=== PATIENT | female | born 1950 | race Caucasian/White ===

== ENCOUNTER 2019-02-27 10:01 | Day surgery (SDC) | payer OTHER ==
[~2019-02-27] VITALS: Ht 149.9 cm; Wt 68.0 kg
[~2019-02-27 10:01] MED LIST: LEVO175T31 OR; PRO20T GT
[2019-02-27] MEDS ORDERED: SODIUM CHLORIDE LOCK 10 ML ONE (10:25)
[2019-02-27] MEDS ORDERED: diphenhdrAMINE HCL 50 MG/1 ML VL ONE (10:28)
[2019-02-27] MEDS: fentaNYL CITRATE 100 MCG/2 ML VL ONE ×2 (10:55→11:01)
[2019-02-27] MEDS: MIDAZOLAM HCL 5 MG/ML-1ML VIAL ONE ×2 (10:55→11:01)
== END 2019-02-27 12:00 | disposition home or self-care (01) ==
LOC: SUR 10:01
PROVIDERS: ATTEND Internal Medicine Gastroenterology
DX: Z12.11 Encounter for screening for malignant neoplasm of colon (principal); K64.8 Other hemorrhoids; E03.9 Hypothyroidism, unspecified; M19.90 Unspecified osteoarthritis, unspecified site; E66.9 Obesity, unspecified; Z68.30 Body mass index [BMI] 30.0-30.9, adult; Z88.2 Allergy status to sulfonamides; Z79.890 Hormone replacement therapy; Z79.899 Other long term (current) drug therapy; Z98.51 Tubal ligation status; Z98.891 History of uterine scar from previous surgery; Z98.890 Other specified postprocedural states
CPT/HCPCS: 45378; J1200; J2250; J3010; J7030; 99152

== ENCOUNTER → 2019-03-26 | Outpatient (CLI) | payer OTHER ==
[2019-03-26 11:57] LABS: Urine Bacteria NONE SEEN /hpf (None Seen); Urine Blood 1+ /uL (Negative); Urine Specific Gravity 1.006 (1.001-1.035); Urine WBC 8 /hpf (0 - 5)
== END | disposition home or self-care (01) ==
LOC: LAB 11:32
PROVIDERS: ATTEND Internal Medicine
DX: R10.9 Unspecified abdominal pain (principal)
CPT/HCPCS: 81001

== ENCOUNTER → 2019-06-18 | Outpatient (CLI) | payer OTHER | END | disposition home or self-care (01) | LOC: LAB 11:54 | PROVIDERS: ATTEND Nurse Practitioner Family | DX: N39.0 Urinary tract infection, site not specified (principal) | CPT/HCPCS: 87086; 87088; 87186 ==

== ENCOUNTER → 2019-08-21 | Outpatient (CLI) | payer OTHER ==
[2019-08-21 08:34] LABS: Basophils # (auto) 0.1 uL; Basophils % (auto) 0.8 % (0.0-2.0); Eosinophils # (auto) 0.2 uL; Eosinophils % (auto) 3.3 % (0.0-7.0); Hematocrit 44.8 % (36.0-46.0); Hemoglobin 15.1 g/dL (12.2-16.2); Lymphocytes # (auto) 2.9 uL; Lymphocytes % (auto) 39.3 % (10.0-50.0); Mean Corpuscular Hemoglobin 30.5 pg (28.0-32.0); Mean Corpuscular Hgb Conc. 33.8 g/dL (32.0-36.0); Mean Corpuscular Volume 90.3 fL (80.0-100.0); Monocytes # (auto) 0.4 uL; Monocytes % (auto) 5.7 % (0.0-12.0); Neutrophils # (auto) 3.7 uL; Neutrophils % (auto) 50.9 % (37.0-80.0); Nucleated Red Blood Cells % 0.1 %; Platelet Count (auto) 351 10^3/uL (140-450); Red Blood Cells 4.96 10^6/uL (4.0-5.20); Red Cell Distribution Width 12.9 % (11.8-14.3); White Blood Cell 7.3 10^3/uL (4.4-10.8)
[2019-08-21 08:46] LABS: Urine Bacteria NONE SEEN /hpf (None Seen); Urine Blood Negative /uL (Negative); Urine Specific Gravity 1.009 (1.001-1.035); Urine WBC 8 /hpf (0 - 5)
[2019-08-21 09:07] LABS: Albumin 4.2 g/dL (3.4-5.0); BUN/Creatinine Ratio 19.4; Bilirubin, Total 0.6 mg/dL (0.2-1.0); Calcium 9.4 mg/dL (8.5-10.1); Potassium 4.5 mmol/L (3.5-5.1); Total Protein 8.2 g/dL (6.4-8.2)
== END | disposition home or self-care (01) ==
LOC: LAB 08:07
PROVIDERS: ATTEND Internal Medicine
DX: E03.9 Hypothyroidism, unspecified (principal); I10 Essential (primary) hypertension; G25.0 Essential tremor
CPT/HCPCS: 36415; 80053; 80061; 81001; 82043; 84439; 84443; 85025; 85652

== ENCOUNTER → 2019-10-06 | Outpatient (CLI) | payer OTHER ==
[2019-10-06 10:21] LABS: Basophils # (auto) 0 uL; Basophils % (auto) 0.8 % (0.0-2.0); Eosinophils # (auto) 0.2 uL; Eosinophils % (auto) 3.2 % (0.0-7.0); Hematocrit 41.9 % (36.0-46.0); Lymphocytes # (auto) 2.8 uL; Lymphocytes % (auto) 47.8 % (10.0-50.0); Mean Corpuscular Hemoglobin 30.3 pg (28.0-32.0); Mean Corpuscular Hgb Conc. 33.5 g/dL (32.0-36.0); Mean Corpuscular Volume 90.5 fL (80.0-100.0); Monocytes # (auto) 0.4 uL; Neutrophils # (auto) 2.5 uL; Neutrophils % (auto) 42.2 % (37.0-80.0); Nucleated Red Blood Cells % 0.1 %; Platelet Count (auto) 324 10^3/uL (140-450); Red Blood Cells 4.63 10^6/uL (4.0-5.20); Red Cell Distribution Width 13.2 % (11.8-14.3); White Blood Cell 5.9 10^3/uL (4.4-10.8)
[2019-10-06 10:46] LABS: Urine Bacteria NONE SEEN /hpf (None Seen); Urine Blood Negative /uL (Negative); Urine WBC 4 /hpf (0 - 5)
[2019-10-06 11:27] LABS: Albumin 3.7 g/dL (3.4-5.0); Calcium 8.9 mg/dL (8.5-10.1); Potassium 4.3 mmol/L (3.5-5.1)
[2019-10-06 11:32] LABS: BUN/Creatinine Ratio 18.8; Bilirubin, Total 0.4 mg/dL (0.2-1.0); Total Protein 6.9 g/dL (6.4-8.2)
== END | disposition home or self-care (01) ==
LOC: LAB 09:51
PROVIDERS: ATTEND Internal Medicine
DX: Z01.818 Encounter for other preprocedural examination (principal); R60.9 Edema, unspecified; Z86.718 Personal history of other venous thrombosis and embolism
CPT/HCPCS: 36415; 80053; 81001; 84439; 84443; 85025

== ENCOUNTER → 2020-01-19 | Outpatient (CLI) | payer OTHER ==
[2020-01-19 08:27] LABS: Basophils # (auto) 0.1 10 ^3/uL (0-0.2); Basophils % (auto) 0.8 % (0.0-2.0); Eosinophils # (auto) 0.2 10 ^3/uL (0-0.8); Eosinophils % (auto) 3.6 % (0.0-7.0); Hematocrit 41.9 % (36.0-46.0); Hemoglobin 14.3 g/dL (12.2-16.2); Lymphocytes # (auto) 2.8 10 ^3/uL (0.4-5.4); Lymphocytes % (auto) 42.8 % (10.0-50.0); Mean Corpuscular Hemoglobin 30.4 pg (28.0-32.0); Mean Corpuscular Hgb Conc. 34.1 g/dL (32.0-36.0); Mean Corpuscular Volume 89.2 fL (80.0-100.0); Monocytes # (auto) 0.4 10 ^3/uL (0-1.3); Neutrophils # (auto) 3.1 10 ^3/uL (1.6-8.6); Neutrophils % (auto) 46.8 % (37.0-80.0); Nucleated Red Blood Cells % 0.1 %; Platelet Count (auto) 307 10^3/uL (140-450); Red Cell Distribution Width 13.1 % (11.8-14.3); White Blood Cell 6.6 10^3/uL (4.4-10.8)
[2020-01-19 08:44] LABS: Cholesterol 220 mg/dL (< 200)
[2020-01-19 08:46] LABS: HDL Cholesterol 61 mg/dL (40-59); LDL Cholesterol 144 mg/dL (< 100); Triglycerides 136 mg/dL (< 150)
== END | disposition home or self-care (01) ==
LOC: LAB 08:04
PROVIDERS: ATTEND Internal Medicine
DX: I10 Essential (primary) hypertension (principal); M25.50 Pain in unspecified joint
CPT/HCPCS: 36415; 80061; 85025; 85652; 86200; 86431; 86812

== ENCOUNTER → 2020-09-06 | Outpatient (CLI) | payer OTHER ==
[2020-09-06 08:13] LABS: Basophils # (auto) 0.1 10 ^3/uL (0-0.2); Basophils % (auto) 0.8 % (0.0-2.0); Eosinophils # (auto) 0.3 10 ^3/uL (0-0.8); Hematocrit 40.9 % (36.0-46.0); Hemoglobin 13.8 g/dL (12.2-16.2); Lymphocytes # (auto) 2.7 10 ^3/uL (0.4-5.4); Lymphocytes % (auto) 42.7 % (10.0-50.0); Mean Corpuscular Hemoglobin 30.6 pg (28.0-32.0); Mean Corpuscular Hgb Conc. 33.7 g/dL (32.0-36.0); Mean Corpuscular Volume 90.8 fL (80.0-100.0); Monocytes # (auto) 0.4 10 ^3/uL (0-1.3); Monocytes % (auto) 5.9 % (0.0-12.0); Neutrophils % (auto) 46.6 % (37.0-80.0); Nucleated Red Blood Cells % 0.1 %; Platelet Count (auto) 366 10^3/uL (140-450); Red Cell Distribution Width 12.9 % (11.8-14.3); White Blood Cell 6.4 10^3/uL (4.4-10.8)
[2020-09-06 08:35] LABS: Albumin 3.8 g/dL (3.4-5.0); Calcium 9.1 mg/dL (8.5-10.1); Potassium 4.5 mmol/L (3.5-5.1)
[2020-09-06 08:41] LABS: BUN/Creatinine Ratio 16.7; Bilirubin, Total 0.4 mg/dL (0.2-1.0); Total Protein 7.2 g/dL (6.4-8.2)
== END | disposition home or self-care (01) ==
LOC: LAB 07:42
PROVIDERS: ATTEND Internal Medicine
DX: I10 Essential (primary) hypertension (principal); N31.9 Neuromuscular dysfunction of bladder, unspecified
CPT/HCPCS: 36415; 80053; 80061; 84439; 84443; 85025; 85652

== ENCOUNTER → 2021-05-10 | Outpatient (CLI) | payer OTHER ==
[~2021-05-10] MED LIST changes: -LEVO175T31 OR; +LEVO175T66 OR
[2021-05-10 11:02] LABS: Cholesterol 217 mg/dL (< 200); HDL Cholesterol 57 mg/dL (40-59); LDL Cholesterol 139 mg/dL (< 100); Triglycerides 147 mg/dL (< 150)
== END | disposition home or self-care (01) ==
LOC: LAB 08:16
PROVIDERS: ATTEND Internal Medicine
DX: I10 Essential (primary) hypertension (principal); E03.9 Hypothyroidism, unspecified
CPT/HCPCS: 36415; 80061; 83036; 84439; 84443

== ENCOUNTER → 2022-06-27 | Outpatient (CLI) | payer OTHER | END | disposition home or self-care (01) | LOC: LAB 06:49 | PROVIDERS: ATTEND Nurse Practitioner | DX: N39.0 Urinary tract infection, site not specified (principal) | CPT/HCPCS: 87086; 87088; 87186 ==

== ENCOUNTER → 2022-07-30 | Outpatient (CLI) | payer OTHER ==
[2022-07-30 10:09] LABS: Basophils # (auto) 0 10 ^3/uL (0-0.2); Basophils % (auto) 0.6 % (0.0-2.0); Eosinophils # (auto) 0.2 10 ^3/uL (0-0.8); Hematocrit 39.4 % (36.0-46.0); Hemoglobin 13.1 g/dL (12.2-16.2); Lymphocytes # (auto) 3.3 10 ^3/uL (0.4-5.4); Lymphocytes % (auto) 47.8 % (10.0-50.0); Mean Corpuscular Hemoglobin 29.1 pg (28.0-32.0); Mean Corpuscular Hgb Conc. 33.2 g/dL (32.0-36.0); Mean Corpuscular Volume 87.6 fL (80.0-100.0); Monocytes # (auto) 0.4 10 ^3/uL (0-1.3); Neutrophils # (auto) 2.9 10 ^3/uL (1.6-8.6); Neutrophils % (auto) 42.6 % (37.0-80.0); Red Cell Distribution Width 13.3 % (11.8-14.3); White Blood Cell 6.9 10^3/uL (4.4-10.8)
[2022-07-30 10:14] LABS: Urine Bacteria NONE SEEN /hpf (None Seen); Urine Blood Negative /uL (Negative); Urine Specific Gravity 1.006 (1.001-1.035); Urine WBC 12 /hpf (0 - 5); Urine WBC Clumps PRESENT /hpf (None Seen)
[2022-07-30 10:45] LABS: Albumin 3.6 g/dL (3.4-5.0); Calcium 9.1 mg/dL (8.5-10.1); Potassium 4.2 mmol/L (3.5-5.1)
[2022-07-30 10:51] LABS: BUN/Creatinine Ratio 14.8; Bilirubin, Total 0.4 mg/dL (0.2-1.0); Total Protein 6.8 g/dL (6.4-8.2)
== END | disposition home or self-care (01) ==
LOC: LAB 09:36
PROVIDERS: ATTEND Internal Medicine
DX: I10 Essential (primary) hypertension (principal); E03.9 Hypothyroidism, unspecified
CPT/HCPCS: 36415; 80053; 80061; 81001; 84439; 84443; 85025; 85652

== ENCOUNTER → 2023-03-15 | Outpatient (CLI) | payer OTHER ==
[~2023-03-15] MED LIST changes: +LEVO175T4 OR; -LEVO175T66 OR
== END | disposition home or self-care (01) ==
LOC: LAB 09:40
PROVIDERS: ATTEND Family Medicine
DX: L72.9 Follicular cyst of the skin and subcutaneous tissue, unspecified (principal)
CPT/HCPCS: 88302

== ENCOUNTER → 2023-03-20 | Outpatient (CLI) | payer OTHER ==
[~2023-03-20] MED LIST changes: -LEVO175T4 OR; +LEVO175T66 OR
[2023-03-20 14:13] LABS: Basophils # (auto) 0.1 10 ^3/uL (0-0.2); Basophils % (auto) 0.8 % (0.0-2.0); Eosinophils # (auto) 0.3 10 ^3/uL (0-0.8); Eosinophils % (auto) 3.4 % (0.0-7.0); Hematocrit 38.2 % (36.0-46.0); Lymphocytes # (auto) 4.2 10 ^3/uL (0.4-5.4); Lymphocytes % (auto) 50.3 % (10.0-50.0); Mean Corpuscular Hemoglobin 30.6 pg (28.0-32.0); Mean Corpuscular Hgb Conc. 34.2 g/dL (32.0-36.0); Mean Corpuscular Volume 89.6 fL (80.0-100.0); Monocytes # (auto) 0.5 10 ^3/uL (0-1.3); Neutrophils # (auto) 3.3 10 ^3/uL (1.6-8.6); Neutrophils % (auto) 39.5 % (37.0-80.0); Nucleated Red Blood Cells % 0.1 %; Red Blood Cells 4.26 10^6/uL (4.0-5.20); Red Cell Distribution Width 13.6 % (11.8-14.3); White Blood Cell 8.3 10^3/uL (4.4-10.8)
[2023-03-20 14:35] LABS: Potassium 4.6 mmol/L (3.5-5.1)
[2023-03-20 15:41] LABS: Albumin 3.7 g/dL (3.4-5.0); BUN/Creatinine Ratio 19.7 (10.0-20.0); Bilirubin, Total 0.2 mg/dL (0.2-1.0); Calcium 8.5 mg/dL (8.5-10.1); Total Protein 6.9 g/dL (6.4-8.2)
== END | disposition home or self-care (01) ==
LOC: LAB 13:50
PROVIDERS: ATTEND Internal Medicine
DX: I10 Essential (primary) hypertension (principal); E03.9 Hypothyroidism, unspecified
CPT/HCPCS: 36415; 80053; 83036; 84439; 84443; 85025

== ENCOUNTER → 2023-08-07 | Outpatient (CLI) | payer OTHER ==
[~2023-08-07] MED LIST changes: +LEVO175T4 OR; -LEVO175T66 OR
[2023-08-07 08:21] LABS: Basophils # (auto) 0.1 10 ^3/uL (0-0.2); Eosinophils # (auto) 0.2 10 ^3/uL (0-0.8); Eosinophils % (auto) 3.5 % (0.0-7.0); Hematocrit 39.8 % (36.0-46.0); Hemoglobin 13.5 g/dL (12.2-16.2); Lymphocytes # (auto) 2.9 10 ^3/uL (0.4-5.4); Lymphocytes % (auto) 45.1 % (10.0-50.0); Mean Corpuscular Hgb Conc. 33.9 g/dL (32.0-36.0); Mean Corpuscular Volume 88.5 fL (80.0-100.0); Monocytes # (auto) 0.4 10 ^3/uL (0-1.3); Monocytes % (auto) 6.6 % (0.0-12.0); Neutrophils # (auto) 2.9 10 ^3/uL (1.6-8.6); Neutrophils % (auto) 43.8 % (37.0-80.0); Nucleated Red Blood Cells % 0.1 %; Red Blood Cells 4.49 10^6/uL (4.0-5.20); White Blood Cell 6.5 10^3/uL (4.4-10.8)
[2023-08-07 08:41] LABS: Urine Bacteria FEW /hpf (None Seen); Urine Blood Negative /uL (Negative); Urine Clarity Clear (Clear); Urine Color Colorless (Yellow); Urine Protein, UAD Negative (Negative); Urine Specific Gravity 1.006 (1.001-1.035); Urine Urobilinogen Normal (Negative); Urine WBC 45 /hpf (0 - 5)
[2023-08-07 08:58] LABS: Alanine Aminotransferase 24 U/L (7-40); Albumin 4.4 g/dL (3.2-4.8); Alkaline Phosphatase 64 U/L (46-116); Anion Gap 5 (5-15); Aspartate Aminotransferase 25 U/L (13-40); BUN/Creatinine Ratio 11.1 (10.0-20.0); Bilirubin, Total 0.6 mg/dL (0.2-1.0); Blood Urea Nitrogen 8 mg/dL (9-23); Calcium 9.4 mg/dL (8.5-10.1); Carbon Dioxide 28 mmol/L (20-30); Chloride 105 mmol/L (98-107); Cholesterol 195 mg/dL (< 200); Glucose 106 mg/dL (74-106); HDL Cholesterol 59 mg/dL (40-59); LDL Cholesterol 120 mg/dL (< 100); Potassium 4.8 mmol/L (3.5-5.1); Sodium 138 mmol/L (136-145); Triglycerides 113 mg/dL (< 150)
[2023-08-07 09:25] LABS: Erythrocyte Sedimentation Rate 8 mm/hr (0-20)
== END | disposition home or self-care (01) ==
LOC: LAB 08:06
PROVIDERS: ATTEND Internal Medicine
DX: E03.9 Hypothyroidism, unspecified (principal)
CPT/HCPCS: 36415; 80053; 80061; 81001; 84439; 84443; 85025; 85652

== ENCOUNTER → 2023-09-09 | Outpatient (CLI) | payer OTHER ==
[2023-09-09 15:27] LABS: Alanine Aminotransferase 17 U/L (7-40); Albumin 4.3 g/dL (3.2-4.8); Alkaline Phosphatase 64 U/L (46-116); Anion Gap 6 (5-15); Aspartate Aminotransferase 21 U/L (13-40); BUN/Creatinine Ratio 13.7 (10.0-20.0); Bilirubin, Total 0.2 mg/dL (0.2-1.0); Blood Urea Nitrogen 10 mg/dL (9-23); Calcium 9.5 mg/dL (8.5-10.1); Carbon Dioxide 27 mmol/L (20-30); Chloride 107 mmol/L (98-107); Glucose 103 mg/dL (74-106); Potassium 4.1 mmol/L (3.5-5.1); Sodium 140 mmol/L (136-145); Total Protein 6.6 g/dL (5.7-8.2)
== END | disposition home or self-care (01) ==
LOC: LAB 14:22
PROVIDERS: ATTEND Internal Medicine
DX: R73.01 Impaired fasting glucose (principal)
CPT/HCPCS: 36415; 80053; 83036; 86803

== ENCOUNTER → 2024-08-27 | Outpatient (CLI) | payer OTHER ==
[2024-08-27 09:11] LABS: Urine Bacteria None Seen /hpf (None Seen)
[2024-08-27 09:21] LABS: Basophils # (auto) 0.1 10 ^3/uL (0-0.2); Basophils % (auto) 0.8 % (0.0-2.0); Eosinophils # (auto) 0.3 10 ^3/uL (0-0.8); Eosinophils % (auto) 3.2 % (0.0-7.0); Hematocrit 40.6 % (36.0-46.0); Hemoglobin 13.6 g/dL (12.2-16.2); Lymphocytes % (auto) 27.4 % (10.0-50.0); Mean Corpuscular Hemoglobin 29.8 pg (28.0-32.0); Mean Corpuscular Hgb Conc. 33.5 g/dL (32.0-36.0); Mean Corpuscular Volume 88.9 fL (80.0-100.0); Monocytes # (auto) 0.6 10 ^3/uL (0-1.3); Monocytes % (auto) 5.5 % (0.0-12.0); Neutrophils # (auto) 6.8 10 ^3/uL (1.6-8.6); Neutrophils % (auto) 63.1 % (37.0-80.0); Platelet Count (auto) 351 10^3/uL (140-450); Red Blood Cells 4.57 10^6/uL (4.0-5.20); Red Cell Distribution Width 13.5 % (11.8-14.3); White Blood Cell 10.8 10^3/uL (4.4-10.8)
[2024-08-27 10:01] LABS: Alanine Aminotransferase 17 U/L (7-40); Albumin 4.3 g/dL (3.2-4.8); Alkaline Phosphatase 75 U/L (46-116); Anion Gap 7 (5-15); Aspartate Aminotransferase 23 U/L (13-40); Bilirubin, Total 0.4 mg/dL (0.2-1.0); Blood Urea Nitrogen 9 mg/dL (9-23); Calcium 9.8 mg/dL (8.7-10.4); Carbon Dioxide 27 mmol/L (20-31); Chloride 107 mmol/L (98-107); Cholesterol 182 mg/dL (< 200); Glucose 110 mg/dL (74-106); HDL Cholesterol 57 mg/dL (40-59); LDL Cholesterol 119 mg/dL (< 100); Potassium 4.5 mmol/L (3.5-5.1); Sodium 141 mmol/L (136-145); Total Protein 7.3 g/dL (5.7-8.2); Triglycerides 104 mg/dL (< 150)
[2024-08-27 10:05] LABS: Erythrocyte Sedimentation Rate 11 mm/hr (0-20); Urine Blood Negative /uL (Negative); Urine Clarity Clear (Clear); Urine Color Light-Yellow (Yellow); Urine Protein, UAD Negative (Negative); Urine Specific Gravity 1.014 (1.001-1.035); Urine Urobilinogen Normal (Negative); Urine WBC 2 /hpf (0 - 5); Urine pH 5.5 (5.0-9.0)
== END | disposition home or self-care (01) ==
LOC: LAB 08:53
PROVIDERS: ATTEND Internal Medicine
DX: I10 Essential (primary) hypertension (principal); E03.9 Hypothyroidism, unspecified
CPT/HCPCS: 36415; 80053; 80061; 81001; 84439; 84443; 85025; 85652

== ENCOUNTER → 2025-02-26 | Outpatient (CLI) | payer OTHER ==
[2025-02-26 11:54] LABS: Basophils # (auto) 0 10 ^3/uL (0-0.2); Basophils % (auto) 0.4 % (0.0-2.0); Eosinophils # (auto) 0.3 10 ^3/uL (0-0.8); Eosinophils % (auto) 3.1 % (0.0-7.0); Hematocrit 40.7 % (36.0-46.0); Hemoglobin 13.9 g/dL (12.2-16.2); Lymphocytes # (auto) 4.3 10 ^3/uL (0.4-5.4); Lymphocytes % (auto) 39.9 % (10.0-50.0); Mean Corpuscular Hemoglobin 30.4 pg (28.0-32.0); Mean Corpuscular Hgb Conc. 34.2 g/dL (32.0-36.0); Mean Corpuscular Volume 88.8 fL (80.0-100.0); Monocytes # (auto) 0.8 10 ^3/uL (0-1.3); Monocytes % (auto) 7.1 % (0.0-12.0); Neutrophils # (auto) 5.3 10 ^3/uL (1.6-8.6); Neutrophils % (auto) 49.5 % (37.0-80.0); Nucleated Red Blood Cells % 0.1 %; Platelet Count (auto) 354 10^3/uL (140-450); Red Blood Cells 4.58 10^6/uL (4.0-5.20); Red Cell Distribution Width 13.1 % (11.8-14.3); White Blood Cell 10.8 10^3/uL (4.4-10.8)
[2025-02-26 12:24] LABS: Free T4 (Free Thyroxine) 1.46 ng/dL (0.89-1.76)
[2025-02-26 12:27] LABS: Alanine Aminotransferase 28 U/L (7-40); Albumin 4.4 g/dL (3.2-4.8); Alkaline Phosphatase 77 U/L (46-116); Anion Gap 8 (5-15); Aspartate Aminotransferase 21 U/L (13-40); BUN/Creatinine Ratio 18.7 (10.0-20.0); Blood Urea Nitrogen 14 mg/dL (9-23); Calcium 10.3 mg/dL (8.7-10.4); Carbon Dioxide 28 mmol/L (20-31); Chloride 105 mmol/L (98-107); Glucose 100 mg/dL (74-106); Potassium 4.7 mmol/L (3.5-5.1); Sodium 141 mmol/L (136-145); Total Protein 7.2 g/dL (5.7-8.2)
[2025-02-26 12:30] LABS: Bilirubin, Total 0.2 mg/dL (0.2-1.0)
== END | disposition home or self-care (01) ==
LOC: LAB 11:05
PROVIDERS: ATTEND Internal Medicine
DX: I10 Essential (primary) hypertension (principal); E78.00 Pure hypercholesterolemia, unspecified; G25.0 Essential tremor
CPT/HCPCS: 36415; 80053; 82607; 84439; 84443; 85025

== ENCOUNTER 2025-04-11 16:43 | Inpatient (IN) | payer OTHER ==
[~2025-04-11] VITALS: Ht 149.9 cm; Wt 64.1 kg
--- NOTE | 2025-04-11 17:01 | ED.PDOC ---
General HPI Comments 74 y.o female with PMHx of reoccurring UTI's, thyroid disease, and HTN, presents to the ED for a chief complaint of dysuria associated with nausea and cloudy urine output that started one day ago. Patient reports reoccurring UTI's, last one diagnosed was about 1.5 months ago, was placed on antibiotics in which she finished but developed symptoms once again yesterday. Patient reports using straight catheter twice a day at home due to his UTI's. Patient denies any fever, chills, back pain, abdominal pain, hematuria, or vomiting. Patient takes nitrofurantoin nightly. Chief Complaint: Urinary Time Seen by MD: 16:52 Reviewed notes: Nurses Notes, Medications, Allergies Allergies: Coded Allergies: Sulfa Antibiotics (Verified Allergy, Severe, HIVES, 02/24/19) Home Meds Active Scripts Levofloxacin Hemihydrate (LEVOFLOXACIN) 500 Mg Tab, 1 TAB PO DAILY, #7 TAB Prov:PEDRO PABLO PHILLIPS MD 04/11/25 Reported Medications Propranolol Hcl (Inderal) 20 Mg Tb, 20 MG GT BID 04/02/12 Levothyroxine Sodium (Levothyroxine Sodium) 175 Mcg Tab, 175 MCG OR QAM 04/02/12 Information Source: Patient Mode of Arrival: Ambulatory Severity: Moderate Timing: Days (1) Duration: Since onset Onset: Spontaneous Symptoms: Dysuria History of: UTI Location: None Modifying factors: None associated signs and symptoms: Nausea, Dysuria Past Medical History PAST MEDICAL HISTORY: HTN, Thyroid, UTI'S Surgical History: Appendectomy, , Tubal Ligation Surgical History (Other): cataracts BIOMEDICAL ENGINEER History: No Pertinent BIOMEDICAL ENGINEER History Family History Family History: Family hx of heart fredi Family History (Other): Father had COPD Social History Smoker: Non-Smoker Alcohol: Denies ETOH Use Drugs: Denies Drug Use Lives In: Home Constitutional: denies: chills, diaphoresis, fatigue, fever, malaise, sweats, weakness, others EENTM: denies: blurred vision, double vision, ear bleeding, ear discharge, ear drainage, ear pain, ear ringing, eye pain, eye redness, hearing loss, mouth pain, mouth swelling, nasal discharge, nose bleeding, nose congestion, nose pain, photophobia, tearing, throat pain, throat swelling, voice changes, others Respiratory: denies: cough, hemoptysis, orthopnea, SOB at rest, shortness of breath, SOB with excertion, stridor, wheezing, others Cardiovascular: denies: chest pain, dizzy spells, diaphoresis, Dyspnea on exertion, edema, irregular heart beat, left arm pain, lightheadedness, palpitations, PND, syncope, others Gastrointestinal: reports: nausea; denies: abdomen distended, abdominal pain, blood streaked bowels, constipated, diarrhea, dysphagia, difficulty swallowing, hematemesis, melena, poor appetite, poor fluid intake, rectal bleeding, rectal pain, vomiting, others Genitourinary: reports: burning, dysuria; denies: abnormal vagina bleeding, dyspareunia, flank pain, frequency, hematuria, incontinence, pain, , vagina discharge, urgency, others Neurological: denies: dizziness, fainting, headache, left sided numbness, left sided weakness, numbness, paresthesia, pre-existing deficit, right sided numbness, right sided weakness, seizure, speech problems, tingling, tremors, weakness, others Musculoskeletal: denies: back pain, gout, joint pain, joint swelling, muscle pain, muscle stiffness, neck pain, others Integumetry: denies: bruises, change in color, change in hair/nails, dryness, laceration, lesions, lumps, rash, wounds, others Allergic/Immunocompromised: denies: Difficulty Healing, Frequent Infections, Hives, Itching, others Hematologic/Lymphatic: denies: anemia, blood clots, easy bleeding, easy bruising, swollen glands, others Endocrine: denies: excessive hunger, excessive sweating, excessive thirst, excessive urination, flushing, intolerance to cold, intolerance to heat, unexplained weight gain, unexplained weight loss, others Psychiatric: denies: anxiety, bipolar disorder, depression, hopeless, panic disorder, schizophrenia, sleepless, suicidal, others All Other Systems: Reviewed and Negative Physical Exam General Appearance: No Apparent Distress HEENT: Normal ENT Inspection, Pharynx Normal, TMs Normal Neck: Full Range of Motion, Non-Tender, Normal, Normal Inspection Respiratory: Chest Non-Tender, Lungs Clear, No Accessory Muscle Use, No Respiratory Distress, Normal Breath Sounds Cardiovascular: No Edema, No JVD, No Murmur, No Gallop, Normal Peripheral Pulses, Regular Rate/Rhythm Breast Exam: Deferred Gastrointestinal: No Organomegaly, Non Tender, No Pulsatile Mass, Normal Bowel Sounds, Soft Genitalia: Deferred Pelvic: Deferred Rectal: Deferred Extremities: No calf tenderness, Normal capillary refill, Normal inspection, Normal range of motion, Non-tender, No pedal edema Musculoskeletal : Apperance: Normal Neurologic: Alert, lime slaker II-XII nml as Tested, No Motor Deficits, Normal Affect, Normal Mood, No Sensory Deficits Cerebellar Function: Normal Reflexes: Normal Skin: Dry, Normal Color, Warm Lymphatic: No Adenopathy Was a procedure done? Was a procedure done?: No Differential Diagnosis Kidney stone (Female): N/A Urinary Problem (Female): PID, Urolithiasis, UTI X-Ray, Labs, Meds, VS Vital Signs Date Time Temp Pulse Resp B/P (MAP) Pulse Ox O2 Delivery O2 Flow Rate FiO2 04/11/25 16:54 98.4 90 17 156/93 (114) 97 98.4 Lab Test 04/11/25 17:03 Range/Units Urine Color Colorless Yellow Urine Clarity Turbid H Clear Urine pH 6.0 5.0-9.0 Urine Specific [place] 1.004 1.001-1.035 Urine Protein Negative Negative Urine Ketones Negative Negative Urine Blood 1+ H Negative /uL Urine Nitrite Negative Negative Urine Bilirubin Negative Negative Urine Urobilinogen Normal Negative mg/dL Urine Leukocyte Esterase 3+ Negative /uL Urine RBC 4 0 - 4 /hpf Urine WBC Clumps Present None Seen /hpf Urine Microscopic WBC 956 H 0-5 /HPF Urine Squamous Epithelial Cells Few <5 /hpf Urine Bacteria Few H None Seen /hpf Urine Glucose Normal Normal mg/dL The urine test is positive for UTI The patient is being discharged and will follow up with the primary care doctor The patient will return the emergency department's the condition worsens. The patient understands and agrees with the management Patient is afebrile. The patient is not hypertensive The patient is being placed on Levaquin Time of 1ST Reevaluation: 18:00 Reevaluation 1ST: Unchanged Patient Education/Counseling: Diagnosis, Treatment, Prognosis, Need For Follow Up Family Education/Counseling: No Family Present Departure 1 Departure Time of Disposition: 17:40 Impression: Primary Impression: UTI (urinary tract infection) Qualified Codes: N30.00 - Acute cystitis without hematuria Disposition: HOME / SELF CARE / HOMELESS Condition: Fair e-Prescriptions Levofloxacin Hemihydrate (LEVOFLOXACIN) 500 Mg Tab 1 TAB PO DAILY, #7 TAB Prov: PEDRO PABLO PHILLIPS MD 04/11/25 Discharged With: Self Critical Care Note Critical Care Time?: No Stability Stability form required: No I personally scribed for PEDRO PABLO PHILLIPS MD ([email or web address]) on 04/11/25 at 17:01. Electronically submitted by Ofe Priest ([facility]). PEDRO PABLO PHILLIPS MD Apr 11, 2025 17:01
[2025-04-11 17:28] LABS: Urine Bacteria FEW /hpf (None Seen); Urine Blood 1+ /uL (Negative); Urine Clarity Turbid (Clear); Urine Color Colorless (Yellow); Urine Protein, UAD Negative (Negative); Urine Specific Gravity 1.004 (1.001-1.035); Urine Squamous Epithelial Cell FEW /hpf (<5); Urine Urobilinogen Normal (Negative); Urine WBC 956 /HPF (0-5); Urine WBC Clumps PRESENT /hpf (None Seen)
[2025-04-11] MEDS ORDERED: LEVO500T91 PO (17:39)
[2025-04-11] MEDS: SODIUM CHLORIDE 0.9% 1,000 ML IV ONE (19:05)
[2025-04-11 19:35] LABS: Basophils # (auto) 0 10 ^3/uL (0-0.2); Basophils % (auto) 0.4 % (0.0-2.0); Eosinophils # (auto) 0.4 10 ^3/uL (0-0.8); Eosinophils % (auto) 4.3 % (0.0-7.0); Hemoglobin 13.8 g/dL (12.2-16.2); Lymphocytes # (auto) 3.7 10 ^3/uL (0.4-5.4); Lymphocytes % (auto) 39.7 % (10.0-50.0); Mean Corpuscular Hgb Conc. 33.8 g/dL (32.0-36.0); Mean Corpuscular Volume 88.7 fL (80.0-100.0); Monocytes # (auto) 0.6 10 ^3/uL (0-1.3); Monocytes % (auto) 6.3 % (0.0-12.0); Neutrophils # (auto) 4.6 10 ^3/uL (1.6-8.6); Neutrophils % (auto) 49.3 % (37.0-80.0); Nucleated Red Blood Cells % 0.1 %; Platelet Count (auto) 310 10^3/uL (140-450); Red Blood Cells 4.62 10^6/uL (4.0-5.20); Red Cell Distribution Width 13.2 % (11.8-14.3); White Blood Cell 9.2 10^3/uL (4.4-10.8)
[2025-04-11 19:40] LABS: Chloride 105 mmol/L (98-107); Potassium 3.8 mmol/L (3.5-5.1); Sodium 138 mmol/L (136-145)
[2025-04-11 19:41] LABS: Anion Gap 9 (5-15); Calcium 9.9 mg/dL (8.7-10.4); Carbon Dioxide 24 mmol/L (20-31)
[2025-04-11 19:46] LABS: BUN/Creatinine Ratio 10.5 (10.0-20.0)
[2025-04-11 19:50] LABS: Blood Urea Nitrogen 8 mg/dL (9-23); Glucose 110 mg/dL (74-106)
[2025-04-11] MEDS ORDERED: hydrALAZINE HCL 20 MG/ML VL IV PRN (20:00)
[2025-04-11] MEDS ORDERED: ONDANSETRON HCL 4 MG/2 ML VIAL IV PRN (20:00)
[2025-04-11] MEDS ORDERED: ACETAMINOPHEN 325 MG TAB PO PRN (20:00)
[2025-04-11] MEDS: cefTRIAXone 1GM/50ML D5W 50 ML IV ONE ×2 (20:35→20:36)
[2025-04-11] MEDS: hydrALAZINE HCL 20 MG/ML VL IV PRN (21:13)
[2025-04-11] MEDS ORDERED: PROPRANOLOL HCL 20 MG TAB PO SCH (22:00)
--- NOTE | 2025-04-11 22:13 | DVHHP2 ---
History of Present Illness Reason for Visit: Urine infection History of Present Illness 74-year-old female presents for evaluation of urinary tract infection. The patient reports recently completing a 3rd antibiotic for a urinary tract infection. She states taking three antibiotics over the past six weeks. She reports developing dysuria with associated nausea and cloudy urine over the past day. No fever or chills. Past Medical History Thyroid, hypertension, UTIs Past Surgical History , tubal ligation, appendectomy Family History Heart disease Smoke: No ALCOHOL: none Drugs: None Review of Systems Review of Systems Review of systems are currently negative otherwise addressed in HPI. Allergies: Coded Allergies: Sulfa Antibiotics (Verified Allergy, Severe, HIVES, 02/24/19) Medications Current Medications Medications Dose Ordered Sig/Cristela Route Start Time Stop Time Status Last Admin Dose Admin Propranolol HCl 20 mg BID PO 04/11/25 22:00 Levothyroxine Sodium 100 mcg QAM@0600 PO 04/12/25 06:00 Ceftriaxone Sodium 50 ml @ 100 mls/hr DAILY@09 IV 04/12/25 09:00 Ondansetron HCl 4 mg Q4HP PRN IV 04/11/25 20:00 Acetaminophen 650 mg Q6HP PRN PO 04/11/25 20:00 Hydralazine HCl 10 mg Q6HP PRN IV 04/11/25 21:00 04/11/25 21:13 10 MG Exam Vital Signs Vital Signs Date Time Temp Pulse Resp B/P (MAP) Pulse Ox O2 Delivery O2 Flow Rate FiO2 04/11/25 21:58 82 12 163/69 (100) 96 04/11/25 20:41 Room Air* 0 21 04/11/25 20:41 98.0 98.0 Exam Gen: 74-year-old female in mild distress Skin: Warm, dry, normal color and texture, no rash. HEENT: Normocephalic atraumatic, mucous membranes moist and pink. Neck: Cervical and supraclavicular nodes normal without enlargement, trachea is midline, thyroid gland is normal without masses. Pulmonary: Clear to auscultation and percussion bilaterally. Cardiac: Regular rate and rhythm. No murmur Abdomen: Soft, nontender, nondistended, bowel sounds present all 4 quadrants, no guarding, no rigidity, no organomegaly. Extremities: No cyanosis, clubbing, no edema Neuro: Cranial nerves II through XII grossly intact, normal affect and speech, no focal motor deficits. Labs/Xrays Labs Test 04/11/25 19:15 04/11/25 17:03 Range/Units White Blood Count 9.2 4.4-10.8 10^3/uL Red Blood Count 4.62 4.0-5.20 10^6/uL Hemoglobin 13.8 12.2-16.2 g/dL Hematocrit 41.0 36.0-46.0 % Mean Corpuscular Volume 88.7 80.0-100.0 fL Mean Corpuscular Hemoglobin 30.0 28.0-32.0 pg Mean Corpuscular Hemoglobin Concent 33.8 32.0-36.0 g/dL Red Cell Distribution Width 13.2 11.8-14.3 % Platelet Count 310 140-450 10^3/uL Mean Platelet Volume 6.7 L 6.9-10.8 fL Neutrophils (%) (Auto) 49.3 37.0-80.0 % Lymphocytes (%) (Auto) 39.7 10.0-50.0 % Monocytes (%) (Auto) 6.3 0.0-12.0 % Eosinophils (%) (Auto) 4.3 0.0-7.0 % Basophils (%) (Auto) 0.4 0.0-2.0 % Neutrophils # (Auto) 4.6 1.6-8.6 10 ^3/uL Lymphocytes # (Auto) 3.7 0.4-5.4 10 ^3/uL Monocytes # (Auto) 0.6 0-1.3 10 ^3/uL Eosinophils # (Auto) 0.4 0-0.8 10 ^3/uL Basophils # (Auto) 0 0-0.2 10 ^3/uL Nucleated Red Blood Cells 0.1 % Sodium Level 138 136-145 mmol/L Potassium Level 3.8 3.5-5.1 mmol/L Chloride Level 105 98-107 mmol/L Carbon Dioxide Level 24 20-31 mmol/L Anion Gap 9 5-15 Blood Urea Nitrogen 8 L 9-23 mg/dL Creatinine 0.76 0.550-1.02 mg/dL Glomerular Filtration Rate Calc 83 >90 mL/min BUN/Creatinine Ratio 10.5 10.0-20.0 Serum Glucose 110 H 74-106 mg/dL Lactic Acid Level 1.0 0.4-2.0 mmol/L Calcium Level 9.9 8.7-10.4 mg/dL Urine Color Colorless Yellow Urine Clarity Turbid H Clear Urine pH 6.0 5.0-9.0 Urine Specific [place] 1.004 1.001-1.035 Urine Protein Negative Negative Urine Ketones Negative Negative Urine Blood 1+ H Negative /uL Urine Nitrite Negative Negative Urine Bilirubin Negative Negative Urine Urobilinogen Normal Negative mg/dL Urine Leukocyte Esterase 3+ Negative /uL Urine RBC 4 0 - 4 /hpf Urine WBC Clumps Present None Seen /hpf Urine Microscopic WBC 956 H 0-5 /HPF Urine Squamous Epithelial Cells Few <5 /hpf Urine Bacteria Few H None Seen /hpf Urine Glucose Normal Normal mg/dL Assessment/Plan Assessment/Plan Assessment Complicated UTI Hypertension Thyroid Plan [facility] Urine bacterial culture pending Ertapenem Resume home medications Continue treatment per orders Plan discussed with: Patient My Orders Orders - FREDDY ALFARO Procedure Category Date Status Time Urine Bacterial STACI 04/11/25 In Process Culture 19:49 Propranolol Hcl PHA 04/11/25 In Process Tablet (Inderal 22:00 Levothyroxine Tablet PHA 04/12/25 In Process (Synthroid Tablet) 06:00 Ceftriaxone 1gm/50ml PHA 04/12/25 In Process D5w (Rocephin) 09:00 Admit ADMIT 04/11/25 Transmitted 19:49 Ondansetron Hcl PHA 04/11/25 In Process (Zofran) 20:00 Condition: Stable KODY 04/11/25 In Process 19:49 Acetaminophen Tablet PHA 04/11/25 In Process (Tylenol Tablet) 20:00 Bedrest With Bathroom KODY 04/11/25 In Process Privileg 19:49 Hydralazine Injection PHA 04/11/25 In Process (Apresoline Inject 21:00 Date of Service: Apr 11, 2025 Billing Provider: FREDDY ALFARO Common Visit Codes: [id number] INP/OBS CARE (MOD) FREDDY ALFARO Apr 11, 2025 22:13
[2025-04-11 22:17] VITALS: BP 162/79; PULSE 102; RESP 19; TEMP 98.2; O2SAT 98
[2025-04-11 22:51] VITALS: PULSE 102; RESP 19; O2SAT 98
[2025-04-11] MEDS: PROPRANOLOL HCL 20 MG TAB PO SCH (23:13)
[2025-04-11] MEDS ORDERED: PROP1TAB53 PO (23:49)
[2025-04-11] MEDS ORDERED: IBUP1TAB5 PO (23:49)
[2025-04-11] MEDS ORDERED: LOSA-534 PO (23:49)
[2025-04-11] MEDS ORDERED: LEVO-177 PO (23:49)
[2025-04-11] MEDS ORDERED: TRAM50TA2 PO (23:49)
[2025-04-12] VITALS (7 sets, daily range): BP systolic 138–156; BP diastolic 51–83; PULSE 76–88; RESP 14–20; TEMP 97.7–98.2; O2SAT 96–99
[2025-04-12] MEDS: LEVOTHYROXINE SODIUM 100 MCG TAB PO SCH (05:56)
[2025-04-12] MEDS ORDERED: LEVOTHYROXINE SODIUM 100 MCG TAB PO SCH (06:00)
[2025-04-12] MEDS ORDERED: cefTRIAXone 1GM/50ML D5W 50 ML IV SCH (09:00)
--- NOTE | 2025-04-12 09:09 | DVH ---
INDICATION: chronic uti's TECHNIQUE: Multiple real-time sonographic images of the kidneys and bladder were obtained. COMPARISON: None FINDINGS: The right kidney measures 9 cm in length, which is normal in size. There is normal echogeni city of the right kidney. No hydronephrosis. The left kidney measures 9.9 cm in length, which is normal in size. There is normal echogenicity of t he left kidney. MILD LEFT HYDRONEPHROSIS No large intraluminal masses are seen in the bladder. Prior to voiding the bladder volume measures vo lume 545 cc. IMPRESSION: Mild left hydronephrosis.
[2025-04-12] MEDS: ERTAPENEM SOD INJ 1 GM in SODIUM CHL 0.9% 50 ML IV SCH (10:00)
[2025-04-12] MEDS ORDERED: PATIENTS OWN MEDICATION (ertapenem 1 GM) IV SCH (10:00)
[2025-04-12 10:52] LABS: INR 1.03 (0.9-1.15); Prothrombin Time 10.9 sec (9.3-11.8)
[2025-04-12 10:57] LABS: Alkaline Phosphatase 72 U/L (46-116); Magnesium 1.9 mg/dL (1.6-2.6); Total Protein 6.9 g/dL (5.7-8.2)
[2025-04-12 10:58] LABS: Albumin 4.2 g/dL (3.2-4.8)
[2025-04-12 10:59] LABS: Bilirubin, Total 0.4 mg/dL (0.2-1.0)
[2025-04-12 11:09] LABS: Aspartate Aminotransferase 36 U/L (<34); Bilirubin, Direct < 0.1 mg/dL (<0.3)
--- NOTE | 2025-04-12 11:51 | DVHPNRES ---
Progress Note Date Seen: Apr 12, 2025 Resident Creating Document: DEENA BURTON RESIDENT Medical Necessity Reason Pt with a Central, PICC or Fol: No Subjective Review of Systems This is a 74-year-old female with hypothyroidism on levothyroxine, hypertension on losartan, recurrent UTIs who was sent to the ER by her PCP for the evaluation of dysuria. Patient reports experiencing UTI 3 times in the past 6 weeks, she has taking Ceftin her followed by Augmentin for 5 days followed by Augmentin for 10 days. Her symptoms resolved for 4-5 days after completing the course of antibiotics and and then would experienced similar symptoms. She denies any fever chills but reports nausea, denies vomiting, constipation or diarrhea. Urine culture report from 03/04/2025 shows E coli probable ESBL resistant to nitrofurantoin, sensitive to Augmentin, cefoxitin, ertapenem, meropenem, tobramycin. PCP: Dr. Gunderson On the ER patient was hypotensive but otherwise on room air. UA showed WBC clumps, 3+ leukocyte esterase. Patient was started on IV ertapenem and IV fluids. Prelim urine culture growing Gram-negative rods. Objective vital signs Vital Sign Date Time Temp Pulse Resp B/P (MAP) Pulse Ox O2 Delivery O2 Flow Rate FiO2 04/12/25 10:20 78 152/51 04/12/25 09:17 98.1 14 99 98.1 04/11/25 22:51 Room Air* 0 21 Total Intake and Output 04/11/25 04/11/25 04/12/25 15:00 23:00 07:00 Intake Total 1000 ml 123 ml Balance 1000 ml 123 ml medications Current Medications Medications Dose Ordered Sig/Cristela Route Start Time Stop Time Status Last Admin Dose Admin Ondansetron HCl 4 mg Q4HP PRN IV 04/11/25 20:00 Acetaminophen 650 mg Q6HP PRN PO 04/11/25 20:00 Hydralazine HCl 10 mg Q6HP PRN IV 04/11/25 21:00 04/11/25 21:13 10 MG Propranolol HCl 20 mg BID PO 04/11/25 22:00 04/12/25 10:20 20 MG Levothyroxine Sodium 100 mcg QAM@0600 PO 04/12/25 06:00 04/12/25 05:56 100 MCG Ertapenem 1 gm/ Sodium Chloride 50 ml @ 100 mls/hr DAILY IV 04/12/25 10:00 Examination Elderly female patient, well conversational, no acute distress General: Well-built, afebrile, mucosae are moist Cardiovascular: Regular S1 and S2. No murmurs, gallops or rubs. No JVD elevation. No pedal edema Respiratory: Normal B/L air entry on room air. Clear lung sounds on auscultation Abdomen: Soft, suprapubic tenderness, nondistended, normoactive bowel sounds, no rebound tenderness, no organomegaly, no masses. No CVA tenderness Genitourinary: Deferred MSK/skin: Mobilizes 4 limbs. Skin is dry and warm Neurological: No motor, no sensitive deficits, normal speech. Pupils are isocoric and reactive. Psych/Mental Status: A/Ox3 laboratory and microbiology Laboratory Tests 04/11/25 19:15 Test 04/11/25 19:15 Range/Units Serum Glucose 110 H 74-106 mg/dL Microbiology Date/Time Source Procedure Growth Status 04/11/25 17:03 Voided Urine Urine Culture - Preliminary Resulted Labs and/or images reviewed: Labs reviewed by me, Image(s) reviewed by me Problem List/Assessment/Plan Problem List/Assessment/Plan Acute cystitis ? ESBL E coli Recurrent UTIs Mild left hydronephrosis UA shows 1+ blood, 3+ leukocyte esterase, 956 WBC and few bacteria Urine bacterial culture growing Gram-negative rods Continue Invanz starting 04/12 Phenazopyridine 200 mg TID for 2 days Uncontrolled hypertension Losartan 50 mg daily Hypothyroidism Levothyroxine 100 mcg daily and propranolol 20 mg b.i.d.b12 DVT prophylaxis: Lovenox 40 mg sc daily Plan discussed with patient in which all questions have been answered Goals of care discussed for more than 20 minutes, full code status Case discussed with Dr. Thompson Plan discussed with: Patient My Orders My Orders Orders - DEENA BURTON Procedure Category Date Status Time Bladder Scan ED NURSING 04/12/25 Transmitted 07:37 Hepatic Panel LAB 04/12/25 In Process 07:37 Magnesium LAB 04/12/25 In Process 07:37 Drug Screen LAB 04/12/25 Transmitted 07:37 Kidney US 04/12/25 Resulted 07:37 DEENA BURTON Apr 12, 2025 11:51
[2025-04-12 13:05] LABS: Alanine Aminotransferase 24 U/L (7-40)
[2025-04-12 14:08] LABS: T3 Total 1.06 ng/mL (0.60-1.81)
[2025-04-12 14:09] LABS: Free T4 (Free Thyroxine) 1.53 ng/dL (0.89-1.76)
[2025-04-12] MEDS: PHENAZOPYRIDINE HCL 100 MG TAB PO SCH (14:11)
[2025-04-12] MEDS: LOSARTAN POTASSIUM 50 MG TAB PO ONE (14:15)
[2025-04-12] MEDS: ERGOCALCIFEROL 50,000 UNIT(1.25MG) CAP PO SCH (14:15)
[2025-04-12] MEDS: CYANOCOBALAMIN (B-12) 1000 MCG/1 ML VIAL IM ONE (14:22)
[2025-04-13 01:00] VITALS: BP 138/64; PULSE 69; RESP 18; TEMP 98.1; O2SAT 98
[2025-04-13 05:00] VITALS: BP 158/68; PULSE 77; RESP 16; TEMP 98.9; O2SAT 97
[2025-04-13 07:38] LABS: Potassium 3.6 mmol/L (3.5-5.1); Sodium 142 mmol/L (136-145)
[2025-04-13 07:39] LABS: Anion Gap 12 (5-15); Carbon Dioxide 23 mmol/L (20-31); Chloride 107 mmol/L (98-107)
[2025-04-13 07:40] LABS: Calcium 9.8 mg/dL (8.7-10.4)
[2025-04-13 07:41] VITALS: RESP 16
[2025-04-13 07:45] LABS: BUN/Creatinine Ratio 8.1 (10.0-20.0); Glucose 120 mg/dL (74-106)
[2025-04-13 07:46] LABS: Blood Urea Nitrogen 6 mg/dL (9-23)
[2025-04-13] MEDS: LOSARTAN POTASSIUM 50 MG TAB PO SCH (08:44)
[2025-04-13 09:00] VITALS: BP 137/73; PULSE 70; RESP 18; TEMP 98.1; O2SAT 98
[2025-04-13 13:00] VITALS: BP 138/71; PULSE 74; RESP 18; TEMP 97.4; O2SAT 98
--- NOTE | 2025-04-13 15:05 | DVHDSRES ---
Discharge Summary Date of Admission Resident Creating Document: DEENA BURTON RESIDENT Apr 11, 2025 at 19:49 Date of Discharge: Apr 13, 2025 Labs/Diagnostic Data: Laboratory Results Test 04/13/25 06:58 04/12/25 10:09 04/11/25 19:15 04/11/25 17:03 Sodium Level 142 mmol/L (136-145) Potassium Level 3.6 mmol/L (3.5-5.1) Chloride Level 107 mmol/L (98-107) Carbon Dioxide Level 23 mmol/L (20-31) Anion Gap 12 (5-15) Blood Urea Nitrogen 6 mg/dL (9-23) Creatinine 0.74 mg/dL (0.550-1.02) Glomerular Filtration Rate Calc 86 mL/min (>90) BUN/Creatinine Ratio 8.1 (10.0-20.0) Serum Glucose 120 mg/dL (74-106) Calcium Level 9.8 mg/dL (8.7-10.4) Prothrombin Time 10.9 sec (9.3-11.8) Prothrombin Time INR 1.03 (0.9-1.15) Activated Partial Thromboplast Time 31.0 SEC (24.5-34.5) Hemoglobin A1c 5.5 % A1C (<5.7) Magnesium Level 1.9 mg/dL (1.6-2.6) Total Bilirubin 0.4 mg/dL (0.2-1.0) Direct Bilirubin < 0.1 mg/dL (<0.3) Aspartate Amino Transferase (AST) 36 U/L (<34) Alanine Aminotransferase (ALT) 24 U/L (7-40) Alkaline Phosphatase 72 U/L (46-116) Total Protein 6.9 g/dL (5.7-8.2) Albumin 4.2 g/dL (3.2-4.8) Vitamin B12 Level 364 pg/mL (211-911) Vitamin D 25-Hydroxy 30.9 ng/mL (30.0-100) Thyroid Stimulating Hormone (TSH) 0.50 uIU/mL (0.55-4.78) Free Thyroxine (T4) Calculated 1.53 ng/dL (0.89-1.76) Total Triiodothyronine (TT3) 1.06 ng/mL (0.60-1.81) White Blood Count 9.2 10^3/uL (4.4-10.8) Red Blood Count 4.62 10^6/uL (4.0-5.20) Hemoglobin 13.8 g/dL (12.2-16.2) Hematocrit 41.0 % (36.0-46.0) Mean Corpuscular Volume 88.7 fL (80.0-100.0) Mean Corpuscular Hemoglobin 30.0 pg (28.0-32.0) Mean Corpuscular Hemoglobin Concent 33.8 g/dL (32.0-36.0) Red Cell Distribution Width 13.2 % (11.8-14.3) Platelet Count 310 10^3/uL (140-450) Mean Platelet Volume 6.7 fL (6.9-10.8) Neutrophils (%) (Auto) 49.3 % (37.0-80.0) Lymphocytes (%) (Auto) 39.7 % (10.0-50.0) Monocytes (%) (Auto) 6.3 % (0.0-12.0) Eosinophils (%) (Auto) 4.3 % (0.0-7.0) Basophils (%) (Auto) 0.4 % (0.0-2.0) Neutrophils # (Auto) 4.6 10 ^3/uL (1.6-8.6) Lymphocytes # (Auto) 3.7 10 ^3/uL (0.4-5.4) Monocytes # (Auto) 0.6 10 ^3/uL (0-1.3) Eosinophils # (Auto) 0.4 10 ^3/uL (0-0.8) Basophils # (Auto) 0 10 ^3/uL (0-0.2) Nucleated Red Blood Cells 0.1 % Lactic Acid Level 1.0 mmol/L (0.4-2.0) Urine Color Colorless (Yellow) Urine Clarity Turbid (Clear) Urine pH 6.0 (5.0-9.0) Urine Specific [place] 1.004 (1.001-1.035) Urine Protein Negative (Negative) Urine Ketones Negative (Negative) Urine Blood 1+ /uL (Negative) Urine Nitrite Negative (Negative) Urine Bilirubin Negative (Negative) Urine Urobilinogen Normal mg/dL (Negative) Urine Leukocyte Esterase 3+ /uL (Negative) Urine RBC 4 /hpf (0 - 4) Urine WBC Clumps Present /hpf (None Seen) Urine Microscopic WBC 956 /HPF (0-5) Urine Squamous Epithelial Cells Few /hpf (<5) Urine Bacteria Few /hpf (None Seen) Urine Glucose Normal mg/dL (Normal) Other Laboratory Tests 04/13/25 06:58 04/11/25 19:15 Brief Hx & Hospital Course: This is a 74-year-old female with hypothyroidism on levothyroxine, hypertension on losartan, recurrent UTIs who was sent to the ER by her PCP for the evaluation of dysuria. Patient reports experiencing UTI 3 times in the past 6 weeks, she has taking Ceftin her followed by Augmentin for 5 days followed by Augmentin for 10 days. Her symptoms resolved for 4-5 days after completing the course of antibiotics and and then would experienced similar symptoms. She denies any fever chills but reports nausea, denies vomiting, constipation or diarrhea. Urine culture report from 03/04/2025 shows E coli probable ESBL resistant to nitrofurantoin, sensitive to Augmentin, cefoxitin, ertapenem, meropenem, tobramycin. PCP: Dr. Gunderson During the hospitalization, UA shows 1+ blood, 3+ leukocyte esterase, 956 WBC and few bacteria. Patient was started on IV Invanz and IV fluids given recent history of ESBL E coli. Urine bacterial culture showed ESBL E coli sensitive to Invanz. We also started phenazopyridine 200 mg TID for 2 days. We continued losartan 50 mg daily. health services manager was consulted for home health with IV antibiotics, patient had IV Invanz for 7 days. Patient has been discharged on home IV antibiotics, IV Invanz 1 g daily for 7 days, recommended to follow up with primary care physician and Urology as outpatient. Patient agreed to discharge planning. Operations or Procedures ORDERING PHYSICIAN: DEENA BURTON RESIDENT PROCEDURE(s): KIDUS - KIDNEY REASON: chronic uti's ORDER NUMBER(s): [id number], ACCESSION NUMBER(s): [id number] INDICATION: chronic uti's TECHNIQUE: Multiple real-time sonographic images of the kidneys and bladder were obtained. COMPARISON: None FINDINGS: The right kidney measures 9 cm in length, which is normal in size. There is normal echogenicity of the right kidney. No hydronephrosis. The left kidney measures 9.9 cm in length, which is normal in size. There is normal echogenicity of the left kidney. MILD LEFT HYDRONEPHROSIS No large intraluminal masses are seen in the bladder. Prior to voiding the bladder volume measures volume 545 cc. IMPRESSION: Mild left hydronephrosis. ATED BY: KENNETH ALEXANDER MD DICTATED DATE/TIME: 04/12/25905 SIGNED BY: KENNETH ALEXANDER MD SIGNED DATE/TIME: 04/12/25905 CC: Condition at Discharge: Stable Final Diagnosis/Problems List Acute cystitis ? ESBL E coli Recurrent UTIs Mild left hydronephrosis Uncontrolled hypertension Hypothyroidism Discharge Disposition: Home Discharge Instruct/Medications Diet: See Comment Diet comment: Increased fluid intake Activity: Light activity Follow Up/Referral: Follow up with Dr Gunderson within 7 days Follow up with Urologist within 7 days Medications: IV INVANZ 7 days daily Resume home meds Discharge Statement: "Patient was advised to return to the ER or call 911 if any headaches, dizziness, shortness of breath, chest pain, abdominal pain, bleeding, fevers, or worsening of medical condition. Patient was counseled about treatment plan, medications, possible side effects, patientverbalized understanding. All questions were answered to the best of my ability. This discharge took greater then 30 minutes in planning, reviewing documentation, counseling the patient, and discussing with other team members." ASSESSMENT ASSESSMENT Assessment Acute cystitis ? ESBL E coli Recurrent UTIs DEENA BURTON RESIDENT Apr 13, 2025 15:05
[2025-04-13] MEDS ORDERED: CHOL200010 PO (15:06)
[2025-04-13 17:18] VITALS: BP 146/75; PULSE 79; RESP 16; TEMP 98.2; O2SAT 96
== END 2025-04-13 17:00 | disposition home health service (06) | DRG 690 ==
LOC: ER 16:50 → OVERFLOW 19:49 → ER 20:05 → CENTRAL 22:17
PROVIDERS: ADMIT Student in an Organized Health Care Education/Training Program; ATTEND Student in an Organized Health Care Education/Training Program
DX: N13.6 Pyonephrosis (principal); I10 Essential (primary) hypertension; E03.9 Hypothyroidism, unspecified; Z82.5 Family history of asthma and other chronic lower respiratory diseases; Z79.899 Other long term (current) drug therapy; B96.20 Unspecified Escherichia coli [E. coli] as the cause of diseases classified elsewhere
CPT/HCPCS: 36415; 76775; 80048; 80076; 81001; 82306; 82607; 83036; 83605; 83735; 84439; 84443; 84480; 85025; 85610; 85730; 87040; 87086; 87088; 87186; 96365; 96375; G0378; J1335

== ENCOUNTER 2025-04-19 12:04 | Outpatient (CLI) | payer OTHER ==
[~2025-04-19 12:04] MED LIST changes: +CHOL200010 PO; +LEVO-177 PO; +LOSA-534 PO; -PRO20T GT; +PROP1TAB53 PO; +TRAM50TA2 PO
[2025-04-19 12:32] LABS: Basophils # (auto) 0 10 ^3/uL (0-0.2); Basophils % (auto) 0.6 % (0.0-2.0); Eosinophils # (auto) 0.4 10 ^3/uL (0-0.8); Eosinophils % (auto) 5.2 % (0.0-7.0); Hematocrit 39.6 % (36.0-46.0); Hemoglobin 13.8 g/dL (12.2-16.2); Lymphocytes # (auto) 3.6 10 ^3/uL (0.4-5.4); Lymphocytes % (auto) 43.5 % (10.0-50.0); Mean Corpuscular Hemoglobin 30.4 pg (28.0-32.0); Mean Corpuscular Hgb Conc. 34.8 g/dL (32.0-36.0); Mean Corpuscular Volume 87.5 fL (80.0-100.0); Monocytes # (auto) 0.5 10 ^3/uL (0-1.3); Monocytes % (auto) 6.3 % (0.0-12.0); Neutrophils # (auto) 3.7 10 ^3/uL (1.6-8.6); Neutrophils % (auto) 44.4 % (37.0-80.0); Platelet Count (auto) 358 10^3/uL (140-450); Red Blood Cells 4.53 10^6/uL (4.0-5.20); Red Cell Distribution Width 12.9 % (11.8-14.3); White Blood Cell 8.3 10^3/uL (4.4-10.8)
[2025-04-19 12:51] LABS: Chloride 103 mmol/L (98-107); Potassium 4.4 mmol/L (3.5-5.1); Sodium 140 mmol/L (136-145)
[2025-04-19 12:52] LABS: Anion Gap 9 (5-15); Calcium 9.7 mg/dL (8.7-10.4); Carbon Dioxide 28 mmol/L (20-31)
[2025-04-19 12:57] LABS: BUN/Creatinine Ratio 17.1 (10.0-20.0); Blood Urea Nitrogen 12 mg/dL (9-23); Glucose 86 mg/dL (74-106)
== END 2025-04-19 17:00 | disposition home or self-care (01) ==
LOC: LAB 12:04
PROVIDERS: ATTEND Internal Medicine
DX: Z13.220 Encounter for screening for lipoid disorders (principal); R68.89 Other general symptoms and signs; Z79.899 Other long term (current) drug therapy
CPT/HCPCS: 36415; 80048; 85025

== ENCOUNTER 2025-07-28 10:39 | Outpatient (CLI) | payer OTHER ==
[2025-07-28 11:19] LABS: Hematocrit 40.1 % (36.0-46.0); Hemoglobin 13.7 g/dL (12.2-16.2); Mean Corpuscular Hemoglobin 29.7 pg (28.0-32.0); Mean Corpuscular Volume 86.9 fL (80.0-100.0); Nucleated Red Blood Cells % 0.0 %
[2025-07-28 11:23] LABS: Urine Protein, UAD Negative (Negative)
[2025-07-28 11:33] LABS: Alanine Aminotransferase 33 U/L (7-40); Albumin 4.3 g/dL (3.2-4.8); Alkaline Phosphatase 65 U/L (46-116); Anion Gap 10 (5-15); BUN/Creatinine Ratio 15.7 (10.0-20.0); Blood Urea Nitrogen 11 mg/dL (9-23); Calcium 9.5 mg/dL (8.7-10.4); Carbon Dioxide 26 mmol/L (20-31); Chloride 103 mmol/L (98-107); Potassium 4.5 mmol/L (3.5-5.1); Sodium 139 mmol/L (136-145); Total Protein 7.1 g/dL (5.7-8.2); Triglycerides 68 mg/dL (< 150)
[2025-07-28 11:34] LABS: Bilirubin, Total 0.5 mg/dL (0.2-1.0); Cholesterol 183 mg/dL (< 200); HDL Cholesterol 59 mg/dL (40-59)
[2025-07-28 11:36] LABS: Glucose 107 mg/dL (74-106)
== END 2025-07-29 17:00 | disposition home or self-care (01) ==
LOC: LAB 10:39
PROVIDERS: ATTEND Internal Medicine
DX: I10 Essential (primary) hypertension (principal); E03.9 Hypothyroidism, unspecified
CPT/HCPCS: 36415; 80053; 80061; 81001; 84439; 84443; 85025; 85652

== ENCOUNTER 2025-09-22 11:54 | Outpatient (CLI) | payer OTHER ==
[2025-09-22 13:00] LABS: Blood Urea Nitrogen 9.0 mg/dL (9-23)
== END 2025-09-22 17:00 | disposition home or self-care (01) ==
LOC: LAB 11:54
PROVIDERS: ATTEND Internal Medicine
DX: H93.19 Tinnitus, unspecified ear (principal); G11.8 Other hereditary ataxias
CPT/HCPCS: 36415; 82565; 84520